=== PATIENT | female | born 1940 | race Caucasian/White ===

== ENCOUNTER 2017-01-28 10:53 | Emergency (ER) | payer MEDICARE, OTHER | END 2017-01-28 14:29 | disposition home or self-care (01) | LOC: FER 10:53 | DX: J20.9 Acute bronchitis, unspecified (principal); J44.9 Chronic obstructive pulmonary disease, unspecified; I10 Essential (primary) hypertension; Z88.2 Allergy status to sulfonamides; Z88.8 Allergy status to other drugs, medicaments and biological substances; Z79.899 Other long term (current) drug therapy | CPT/HCPCS: 71020; 99283 ==

== ENCOUNTER 2021-09-22 11:30 | Inpatient (IN) | payer MEDICARE, OTHER ==
[~2021-09-22] VITALS: Ht 167.6 cm; Wt 53.1 kg
[2021-09-22 11:52] LABS: BASOPHIL 0.4 % (0-2); EOSINOPHIL 0 % (0-7); HCT 41.1 % (37.0-47.0); HGB 13.6 g/dl (12.5-16.0); LYMPHOCYTE 5.3 % (15-48); MCH 30.7 pg (25.0-31.0); MCHC 33.1 g/dL (32.0-36.0); MCV 92.8 fL (78.0-100.0); MONOCYTE 5.7 % (0-12); MPV 10.6 fL (6.0-9.5); NEUTROPHIL 87.5 % (41-80); NRBC 0; PLT 143 K/uL (150-400); RBC 4.43 M/uL (4.20-5.40); RDW 15.3 % (11.5-14.0); WBC 5.5 K/uL (4.0-10.5)
[2021-09-22 11:54] LABS: BILIRUBIN 1+ mg/dL (NEGATIVE); BLOOD 3+ Ery/uL (NEGATIVE); CLARITY CLEAR (CLEAR); COLOR YELLOW (YELLOW); GLUCOSE (U) NORMAL (NORMAL); LEUKOCYTES NEGATIVE Leu/uL (NEGATIVE); NITRITE NEGATIVE (NEGATIVE); PROTEIN 2+ mg/dL (NEGATIVE); SPECIFIC GRAVITY >=1.030 (1.001-1.030)
[2021-09-22 11:56] LABS: AMPHETAMINES NEGATIVE (NEGATIVE); BARBITURATES NEGATIVE (NEGATIVE); ECSTASY (MDMA) NEGATIVE (NEGATIVE); MARIJUANA (THC) NEGATIVE (NEGATIVE); METHADONE NEGATIVE (NEGATIVE); OPIATES NEGATIVE (NEGATIVE); OXYCODONE NEGATIVE (NEGATIVE)
[2021-09-22 12:19] LABS: BACTERIA 1+; CALCIUM OXALATE CRYSTALS TRACE; MUCOUS MODERATE
[2021-09-22 12:58] LABS: ALBUMIN 2.4 g/dL (3.4-5.0); BILIRUBIN - TOTAL 0.8 mg/dL (0.2-1.0); BUN/CREAT RATIO (CALC) 57.1 RATIO; CREATININE 0.42 mg/dL (0.51-0.95); GLOBULIN (CALCULATION) 3.4 g/dL; POTASSIUM 3.8 mmol/L (3.5-5.1); TOTAL PROTEIN 5.8 g/dL (6.4-8.2)
--- NOTE | 2021-09-22 18:25 | NUR ---
PATIENT RECEIVED FROM ER VIA STRETCHER
[2021-09-22] MEDS ORDERED: NORVASC5 MG PO (18:33)
[2021-09-22] MEDS ORDERED: PRINIVIL20 MG PO (18:33)
--- NOTE | 2021-09-23 03:21 | NUR ---
WENT INTO PATIENT'S ROOM AT 0100 TO GIVE PATIENT TYLENOL FOR FEVER. AFTER ADMINISTERING TYLENOL, THIS NURSE BEGAN TO GET THE PATIENT UP TO THE BEDSIDE COMMODE TO VOID, THEN NOTICED THAT THE PATIENTS LEFT EYE WAS NOT FULLY CLOSING WHEN BLINKING, ALONG WITH THE LEFT SIDE OF THE MOUTH DROOPING LOWER THAN THE RIGHT. PATIENT WAS ALERT AND ORIENTED X4, SLIGHTLY DELAYED TO ANSWER QUESTIONS. STRENGTHS AND PUPILS WERE EQUAL. RECIEVED IN REPORT THAT PATIENT WAS A STANDBY ASSIST. WHEN GETTING UP TO THE BEDSIDE COMMODE, PATIENT WAS A HEAVY 2 ASSIST AND WAS VERY WEAK. HEART RATE INCREASED TO 150S WHILE OUT OF BED AND APEARED TO BE IN ATRIAL FIBRILATION. CONTACTED PROVIDER AND NOTIFIED HIM OF PATIENT'S CHANGE IN NEUROLOGICAL STATUS AND CARDIAC CHANGES. ALSO, CONTACTED BAND SAWMILL OPERATOR TO NOTIFY AND ASK ABOUT HOSPITAL STROKE PROTOCAL. BAND SAWMILL OPERATOR STATED THAT THE CUT OFF FOR TPA IS THE AGE OF 79. PATIENT IS 81 YEARS OLD. 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 NOTIFIED PROVIDER OF NEW VITAL SIGNS AND EKG READING. PROVIDER ORDERED 5MG OF METOPROLOL IV. AFTER ADMINISTRATION, PATIENT IS IN AFIB. HEART RATE RANGING FROM HIGH 70S TO LOW 100S. PROVIDER INSTRUCTED TO CONTINUE TO OBSERVE PATIENT WITH NO OTHER ORDERS.
[2021-09-23 04:33] LABS: BASOPHIL 0 % (0-2); EOSINOPHIL 0 % (0-7); HCT 30.8 % (37.0-47.0); HGB 10.3 g/dl (12.5-16.0); LYMPHOCYTE 6.1 % (15-48); MCH 30.9 pg (25.0-31.0); MCHC 33.4 g/dL (32.0-36.0); MCV 92.5 fL (78.0-100.0); MONOCYTE 5.8 % (0-12); MPV 10.8 fL (6.0-9.5); NEUTROPHIL 86.5 % (41-80); NRBC 0; PLT 136 K/uL (150-400); RBC 3.33 M/uL (4.20-5.40); RDW 15.2 % (11.5-14.0); WBC 4.5 K/uL (4.0-10.5)
[2021-09-23 04:55] LABS: IRON % SATURATION 98.9 %SAT (20-50)
[2021-09-23 06:00] LABS: ALBUMIN 1.9 g/dL (3.4-5.0); BILIRUBIN - TOTAL 0.6 mg/dL (0.2-1.0); BUN/CREAT RATIO (CALC) 54.7 RATIO; CREATININE 0.64 mg/dL (0.51-0.95); GLOBULIN (CALCULATION) 2.8 g/dL; MAGNESIUM 2.2 mg/dL (1.8-2.4); POTASSIUM 3.1 mmol/L (3.5-5.1); TOTAL PROTEIN 4.7 g/dL (6.4-8.2)
--- NOTE | 2021-09-23 20:07 | NUR ---
PATIENT WAS BROUGHT INTO ED BY AMBULANCE. ACCORDING TO [facility] STAFF PATIENT WAS SAT AT 80%. EMS BROUGHT HER IN ON 3LNC SAT AT 90'S. ABG SHOWED CO2 RETENTION. LABS SHOWED ELEVATED WBC, LOW POTASSIUM AND HIGH CALCIUM. 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 PATIENT HAS LARGE MASS ON RIGHT SIDE OF GROIN WELL. SURGERY WAS AUGUST 21 AT [facility]. WOUND VAC WAS PLACED ON 09/15 WHEN SHE ARRIVED TO [facility]. 09/21 THE WOUND VAC COULD NOT BE PLACED BACK ON WOUND DUE TO LACK OF PROPER SEAL. 09/23 ED STATED WOUND HAD THICK COTTAGE CHEESE LIKE SUBSTANCE THAT WAS CLEANED OUT. SPOKE WITH NURSE FROM [facility] AND SHE STATES THE WOUND WAS CLEANED TWICE A SHIFT. INITIAL ASSESSMENT OF WOUND NURSE STATES IT WAS FLUSH TO SKIN AND ONLY 2 INCH WIDE. WOUND IS DEEP ENOUGH NOW THAT REQUIRES PACKING. THE SMALLER WOUND IS LOCATED IN THE LABIA AREA. RN FROM [facility] STATES WOUNDS HAVE WORSENED FROM ADMISSION ON 09/15 AND NEEDS TO BE ADDRESSED WITH WOUND CARE. WOUND CONSULT WAS ORDERED FOR THIS ADMISSION. PATIENT WILL NOT FOLLOW COMMANDS OR ANSWER QUESTIONS. RN STATED PATIENT IS MORE CONFUSED THAN NORMAL BUT WILL NOT ALWAYS ANSWER QUESTIONS BASELINE. SPOKE WITH JOS CORMIER RN FROM [facility] FOR MORE DETAIL OF PATIENT. (SPELLING ON NAME)
[2021-09-24 06:29] LABS: BASOPHIL 0.3 % (0-2); EOSINOPHIL 0 % (0-7); HGB 10.1 g/dl (12.5-16.0); MCHC 33.7 g/dL (32.0-36.0); MONOCYTE 7.8 % (0-12); MPV 10.7 fL (6.0-9.5); NEUTROPHIL 83.4 % (41-80); NRBC 0; PLT 134 K/uL (150-400); RBC 3.26 M/uL (4.20-5.40); RDW 15.2 % (11.5-14.0); WBC 3.4 K/uL (4.0-10.5)
[2021-09-24 06:38] LABS: ALBUMIN 1.8 g/dL (3.4-5.0); BILIRUBIN - TOTAL 0.6 mg/dL (0.2-1.0); BUN/CREAT RATIO (CALC) 62.8 RATIO; CREATININE 0.43 mg/dL (0.51-0.95); FOLIC ACID (SERUM) 14.6 ng/mL (8.6-58.9); GLOBULIN (CALCULATION) 2.3 g/dL; MAGNESIUM 1.9 mg/dL (1.8-2.4); POTASSIUM 4.1 mmol/L (3.5-5.1); TOTAL PROTEIN 4.1 g/dL (6.4-8.2)
--- NOTE | 2021-09-24 15:18 | NUR ---
09/24/21 Ms. Hewitt lives alone. She reports to have been doing well until she feel at home. She has a rw and cane. HH is not current. Ms. eHwitt has 2 childre; one within 3 miles and the other lives in [place]. Ms. Hewitt reports that her daughter assist as needed. - Nursing reports patient to require the assistance of 2. - Will monitor for HH vs SNF based on PT/OT evaluations.
--- NOTE | 2021-09-24 22:21 | NUR ---
0950: PT HR 160'S, STRIP PRINTED AND NOTIFIED MD, EKG ORDERED. EKG NOTED AFIB WITH RVR. ORDER FOR AMIO. 1010: AMIO 150MG GIVEN VIA IVP. 1025: PT NOTED TO BE IN NSR, RN NOTIFIED MD, ORDER GIVEN TO PLACE PT ON AMIO GTT PER PROTOCOL. 1034: AMIO GTT STARTED 33.3ML PT REMAINS IN NSR.
[2021-09-25 04:26] LABS: BASOPHIL 0.3 % (0-2); EOSINOPHIL 0.3 % (0-7); HCT 29.5 % (37.0-47.0); HGB 9.9 g/dl (12.5-16.0); LYMPHOCYTE 11.7 % (15-48); MCH 30.9 pg (25.0-31.0); MCHC 33.6 g/dL (32.0-36.0); MCV 92.2 fL (78.0-100.0); MONOCYTE 6.3 % (0-12); MPV 10.6 fL (6.0-9.5); NEUTROPHIL 80.5 % (41-80); NRBC 0; RDW 15.4 % (11.5-14.0); WBC 3.3 K/uL (4.0-10.5)
[2021-09-25 04:31] LABS: PLT 119 K/uL (150-400)
[2021-09-25 04:45] LABS: ALBUMIN 1.7 g/dL (3.4-5.0); BILIRUBIN - TOTAL 0.5 mg/dL (0.2-1.0); BUN/CREAT RATIO (CALC) 67.5 RATIO; CREATININE 0.4 mg/dL (0.51-0.95); GLOBULIN (CALCULATION) 2.5 g/dL; POTASSIUM 4.2 mmol/L (3.5-5.1); TOTAL PROTEIN 4.2 g/dL (6.4-8.2)
--- NOTE | 2021-09-25 11:58 | NUR ---
PT DAUGHTER MAY STAY OVERNIGHT, MAY "COME AND GO SHE PLEASES" PER KEVYN MCDERMOTT IN QUALITY
--- NOTE | 2021-09-25 13:20 | NUR ---
09/25 Ms. Hewitt and her daughter, Vidya Vieira, would like a SNF placement. They had 2 choices only; [facility]. Referral have been made to both facilities.
--- NOTE | 2021-09-25 16:39 | NUR ---
09/25/21 [facility] accepted patient for admission on 09/26. Patient meets criteria for EMS per nursing. Please call report to: [phone], fax DS to: [phone]. Report given to YESY Mejia RN.
[2021-09-26 05:26] LABS: BASOPHIL 0 % (0-2); EOSINOPHIL 0.3 % (0-7); HCT 25.3 % (37.0-47.0); HGB 8.7 g/dl (12.5-16.0); LYMPHOCYTE 12.2 % (15-48); MCH 30.9 pg (25.0-31.0); MCHC 34.4 g/dL (32.0-36.0); MCV 89.7 fL (78.0-100.0); MONOCYTE 6.8 % (0-12); MPV 10.2 fL (6.0-9.5); NEUTROPHIL 79.7 % (41-80); NRBC 0; PLT 120 K/uL (150-400); RBC 2.82 M/uL (4.20-5.40); RDW 15.3 % (11.5-14.0)
[2021-09-26 05:45] LABS: ALBUMIN 1.8 g/dL (3.4-5.0); BILIRUBIN - TOTAL 0.5 mg/dL (0.2-1.0); BUN/CREAT RATIO (CALC) 86.8 RATIO; CREATININE 0.38 mg/dL (0.51-0.95); GLOBULIN (CALCULATION) 2.4 g/dL; MAGNESIUM 1.9 mg/dL (1.8-2.4); POTASSIUM 4.3 mmol/L (3.5-5.1); TOTAL PROTEIN 4.2 g/dL (6.4-8.2)
[2021-09-26] MEDS ORDERED: ELIQUIS2.5 MG PO (13:20)
[2021-09-26] MEDS ORDERED: LOPRESSOR25 MG PO (13:20)
[2021-09-26] MEDS ORDERED: DIGITEK125 MCG PO (13:20)
[2021-09-26] MEDS ORDERED: MEGACE ORA6 TSP/1 OZ PO (13:20)
[2021-09-26] MEDS ORDERED: ACETAMINOPHEN500 M1 PO (13:21)
[2021-09-26] MEDS ORDERED: LEVAQUIN500 MG PO (13:21)
== END 2021-09-26 19:00 | DRG 281 ==
LOC: FER 11:30 → FTCU 16:34
PROVIDERS: Emergency Medicine; Internal Medicine; ADMIT Internal Medicine
DX: I48.91 Unspecified atrial fibrillation (principal); I21.A1 Myocardial infarction type 2; J47.1 Bronchiectasis with (acute) exacerbation; E44.0 Moderate protein-calorie malnutrition; Z68.1 Body mass index [BMI] 19.9 or less, adult; E87.1 Hypo-osmolality and hyponatremia; N39.0 Urinary tract infection, site not specified; D64.9 Anemia, unspecified; Z20.822 Contact with and (suspected) exposure to COVID-19; I11.9 Hypertensive heart disease without heart failure; G62.9 Polyneuropathy, unspecified; G50.9 Disorder of trigeminal nerve, unspecified; Z85.72 Personal history of non-Hodgkin lymphomas; Z82.49 Family history of ischemic heart disease and other diseases of the circulatory system; Z79.899 Other long term (current) drug therapy; Z88.2 Allergy status to sulfonamides; Z88.8 Allergy status to other drugs, medicaments and biological substances; Z83.3 Family history of diabetes mellitus; Z82.3 Family history of stroke; Z80.9 Family history of malignant neoplasm, unspecified; W19.XXXA Unspecified fall, initial encounter
CPT/HCPCS: 36415; 70450; 70551; 71045; 71250; 80053; 80061; 80305; 81001; 82550; 82607; 82746; 83540; 83550; 83605; 83735; 83880; 84145; 84484; 85025; 87040; 87070; 87088; 87205; 93005; 97162; 97166; 97530-GP; 97535; G0378; J0282; J1650; J1956; J7030; J7060; U0002